=== PATIENT | female | born 1955 | race Caucasian/White ===

== ENCOUNTER 2024-02-04 14:48 | Emergency (ER) | payer MEDICARE, SELFPAY ==
[2024-02-04] VITALS (39 sets, daily range): BP systolic 117–170; BP diastolic 60–96; PULSE 55–72; RESP 15–47; TEMP 36.3; O2SAT 87–100; BMI 20.9
--- NOTE | 2024-02-04 15:02 | DI.RAD.S_ITS ---
PROCEDURE: XR WRIST RT MIN 3V INDICATIONS: fall on to Right wrist; hit gravel TECHNIQUE: 4 views of the wrist were acquired. COMPARISON: None. FINDINGS: Bones: Comminuted intra-articular distal radial fracture shows dorsal displacement and angulation Soft tissues: No suspicious soft tissue calcifications. IMPRESSION: Comminuted intra-articular distal radial fracture with dorsal displacement Minimally distracted ulnar styloid fracture Approved by: Demarco Hargrove M.D. on 02/04/2024 at 14:56
[2024-02-04] MEDS: ONDANSETRON 4 MG/2 ML INJ IV (15:17)
[2024-02-04] MEDS: HYDROMORPHONE 0.5 MG INJ IV (15:17)
--- NOTE | 2024-02-04 15:29 | PC.NURSE ---
Gave the patient pain medication and lisa, see MAR, patients sats dropped to 86%. Placed the patient on 2.5L NC in order to maintain sats above 91%. When placing the NC on patient they were reporting that they felt they were gonna be sick, this RN placed a cool rag on her head
--- NOTE | 2024-02-04 16:44 | ED.UPPEXIN ---
HPI - Extremity Injury (Upper) General Chief Complaint: Extremity Injury, Upper Stated Complaint: GLF, R WRIST INJURY, NO THINNERS Time Seen by Provider: 02/04/24 15:34 History of Present Illness HPI narrative: 68-year-old female fell from standing position on rocks at [facility] in [place] few hours ago, complains of swelling and pain to right wrist, no other injuries. No prior surgical interventions or procedures on this wrist. She has no pain to her left fingers, hand, mid proximal forearm, elbow, upper arm, shoulder, clavicle. She did not hit her head. She has no headache pain or neck pain. She denies upper mid lower back pain. She denies pain to her chest abdomen and pelvis. She had not hurt either leg. She did not injure her left upper extremity. Related Data Previous Rx's Medication Instructions Recorded oxycodone-acetaminophen 5 mg-325 1 tab PO Q6H PRN pain #20 tabs 02/04/24 mg tablet Allergies Allergy/AdvReac Type Severity Reaction Status Date / Time levofloxacin Allergy Verified 02/04/24 15:01 Patient History Social History Smoking Status: Former smoker Smoking Status: Former smoker alcohol intake frequency: other Substance Use Type: does not use Exam Narrative Exam Narrative: GENERAL: Well-developed patient, in mild distress. HEAD: Atraumatic. Normocephalic. EYES: Pupils equal round and reactive. Extraocular motions intact. No scleral icterus. No injection or drainage. ENT: Nose without bleeding, purulent drainage. Throat without erythema, tonsillar hypertrophy or exudate. Airway patent. NECK: Trachea midline. Non tender CARDIOVASCULAR: Regular rate and rhythm without murmurs, gallops, or rubs. RESPIRATORY: Clear to auscultation. Breath sounds equal bilaterally. No wheezes, rales, or rhonchi. GASTROINTESTINAL: Abdomen soft, non-tender, nondistended. EXTREMITIES: Dinner fork deformity closed distal radius fracture right wrist, radial pulse intact, good perfusion fingers, good sensation to light touch all fingers lateral and snuffbox in thumb. No tenderness to her right dorsal hand or right fingers, no tenderness or swelling to the right elbow upper arm shoulder clavicle. No edema or joint tenderness. BACK: Nontender without deformity or crepitance. No flank tenderness. NEURO: AOx3. Grossly nonfocal, limited right hand wrist motion due to orthopedic injury SKIN: No rash or erythema of visible areas Initial Vital Signs Initial Vital Signs: Vital Signs Pulse Rate 67 02/04/24 15:00 Pulse Oximetry 92 02/04/24 15:00 Oxygen Delivery Method Room Air 02/04/24 15:00 Procedures Orthopedic Fracture Reduction Fracture #1: Time Out Performed: Yes Side: right Fracture Reduction Location: radius (Distal radius Colles fracture with impaction and angulation in combination) Analgesia: procedural sedation Technique: direct manipulation and traction/counter-traction Post Reduction X-rays Demonstrate: anatomical reduction Post-reduction neuro exam: intact Post-reduction vascular exam: intact Splint Applied: Yes Patient Tolerated Procedure: Well Procedural Sedation Indication: fracture/dislocation reduction (Reduction of comminuted distal radius fracture with distal fracture fragment angulation and displacement) Presedation Evaluation: Prior general anesthesia surgery including cervical fusion surgery, good range of motion neck ASA Class: I Time of Last PO Intake: 09:00 IV Propofol dose (mg): 80 ED Sedation Level: Moderate (Concious) Patient Tolerated Procedure: Well Complications: none Interventions: Assist by BVM and Oxygen applied Additional Comments: Brief gentle bag assist BVM by RT, excellent results, tolerated well, returned to preprocedural baseline. Discharged home with family Course Orders Ordered: Discontinued Medications Hydromorphone HCl (Hydromorphone 0.5 Mg Inj) 0.5 mg IV NOW ONE Stop: 02/04/24 15:11 Last Admin: 02/04/24 15:17 Dose: 0.5 mg Documented By: GILDA Ondansetron HCl (Ondansetron 4 Mg/2 Ml Inj) 4 mg IV NOW ONE Stop: 02/04/24 15:11 Last Admin: 02/04/24 15:17 Dose: 4 mg Documented By: GILDA Oxycodone/Acetaminophen (Oxycodone/Acetaminophen 5/325 Tablet) 1 tab PO NOW ONE Stop: 02/04/24 17:44 Last Admin: 02/04/24 17:51 Dose: 1 tab Documented By: GILDA Oxycodone/Acetaminophen (Oxycodone/Apap 5/325 Prepack) 1 bottle MISC DIRECTED ONE Stop: 02/04/24 19:20 Last Admin: 02/04/24 20:07 Dose: 1 bottle Documented By: GILDA Propofol (Propofol 200 Mg/20 Ml Vial) 200 mg IV NOW ONE Stop: 02/04/24 16:20 Last Admin: 02/04/24 16:47 Dose: 200 mg Documented By: GILDA Vital Signs Vital signs: Vital Signs - 8 hr 02/04/24 15:00 02/04/24 15:01 02/04/24 15:04 Temperature 97.4 F L Pulse Rate 67 67 Respiratory Rate 18 Blood Pressure 130/70 120/68 Pulse Oximetry 92 92 Oxygen Delivery Method Room Air Room Air Oxygen Flow Rate 02/04/24 15:04 02/04/24 15:29 02/04/24 15:30 Temperature Pulse Rate 60 57 L Respiratory Rate 16 Blood Pressure 117/63 Pulse Oximetry 93 94 Oxygen Delivery Method Nasal Cannula Oxygen Flow Rate 2 02/04/24 15:30 02/04/24 16:00 02/04/24 16:00 Temperature Pulse Rate 57 L 61 Respiratory Rate 15 Blood Pressure 126/60 Pulse Oximetry 94 94 Oxygen Delivery Method Oxygen Flow Rate 02/04/24 16:30 02/04/24 16:30 Temperature Pulse Rate 59 L Respiratory Rate Blood Pressure 132/68 Pulse Oximetry 96 Oxygen Delivery Method Nasal Cannula Oxygen Flow Rate 2 MDM - Extremity Injury (Upper) Lab Data Labs: Point of Care Testing Test Results Not applicable Imaging Data Extremity x-ray #1: Radiologist's Impression: [address] [address] XRay Report Signed Patient: Delmi Salmeron MR#: [id number] : 1955 Acct:[id number] Age/Sex: 68 / F Date of Service: 02/04/24 Loc: ED Accession Number: [id number] Procedure: XR wrist RT min 3V Ordering Provider: Wan Pat MD PROCEDURE: XR WRIST RT MIN 3V INDICATIONS: fall on to Right wrist; hit gravel TECHNIQUE: 4 views of the wrist were acquired. COMPARISON: None. FINDINGS: Bones: Comminuted intra-articular distal radial fracture shows dorsal displacement and angulation Soft tissues: No suspicious soft tissue calcifications. IMPRESSION: Comminuted intra-articular distal radial fracture with dorsal displacement Minimally distracted ulnar styloid fracture Approved by: Demarco Hargrove M.D. on 02/04/2024 at 14:56 Extremity x-ray #2: Radiologist's Impression: [address] [address] XRay Report Signed Patient: Delmi Salmeron MR#: [id number] : 1955 Acct:[id number] Age/Sex: 68 / F Date of Service: 02/04/24 Loc: ED Accession Number: [id number] Procedure: XR wrist RT 2V Ordering Provider: Wan Pat MD PROCEDURE: XR WRIST RT 2V INDICATIONS: post reduction film TECHNIQUE: 2 views of the wrist were acquired. COMPARISON: [facility], , XR WRIST RT MIN 3V, 02/04/2024, 15:03. FINDINGS: Bones: Interval reduction and casting of comminuted distal right radial fracture in improved post reduction alignment. Redemonstration of minimally displaced distal ulnar styloid process fracture. Overlying cast material obscures fine underlying osseous details. Soft tissues: No suspicious soft tissue calcifications. IMPRESSION: Status post closed reduction and casting of known comminuted intra-articular fracture of the distal right radius. Minimally displaced ulnar styloid process fracture. Dictated by: Bennie Jones M.D. on 02/04/2024 at 18:13 Approved by: Bennie Jones M.D. on 02/04/2024 at 18:14 [facility] Narrative Medical decision making narrative: 68-year-old female with ground level fall, right distal radius displaced comminuted fracture, and right ulnar styloid fracture, isolated injury. History of prior general anesthesia, NPO since 9 this morning. Reduction conscious sedation, verbal consent from patient and family. See procedure notes. Reduction with traction/counter-traction and manual manipulation, clinically improved parents, placed in Webril cotton wrap, then sugar-tong ortho glass placement splint short-arm with molding. Cap refill less than 2 seconds fingers. Tolerated well. Disposition discussion, they are from [place] and were planning on train ride home tomorrow. Percocet home pack dispensed for pain control Monday overnight. Prescription for further Percocet sent to local pharmacy to fill tomorrow Monday during open hours. Contact information given for local orthopedic surgery, Dr. Flores if they should decide on staying for local orthopedic surgery, versus follow up in [facility] area. Copies of x-ray onto disc if they should pursue home state follow-up orthopedic care. Advised to follow up soon early this week, so that operative definitive intervention can be arranged either locally or in home state [place]. Placed in sling after splinting. Improved. Return precautions discussed. Home with family Discharge Plan Departure Patient Disposition: Home Clinical Impression: Distal radius fracture, right, Distal end of ulna fracture, closed, Colles' fracture Instructions: DI for Wrist Fracture Activity Restrictions/Additional Instructions: Fall onto park rocks, with right wrist pain and swelling, x-ray shows distal radius comminuted fracture with angulation, also a small ulnar tip fracture as well. Conscious sedation was performed to help with reduction straightening and repositioning of the bone fragments, for this unstable fracture that will require surgical fixation. Alignment in position was improved, with splinting, sling and sugar-tong splint. You were planning on going back home to your home [facility] but might be interested in having surgery locally. Contact information given for local surgery on-call, contact information for Dr. Flores, to call office tomorrow if you decide to try to have surgery locally. Otherwise would advise close follow up in your home state next few days, with arrangements for orthopedic surgery soon, for surgical fixation definitive care. Pain medication sent to local pharmacy free to feel. Wear sling and keep arm elevated. Follow up with Orthopedic surgery advised for surgical fixation. Call office tomorrow to see if local surgical arrangements can be made, if you decide to have care done locally. Return earlier to this/nearest emergency department for any change worsening symptoms or any concerns prior Prescriptions: New oxycodone-acetaminophen 5-325 mg tablet 1 tab PO Q6H PRN (Reason: pain) Qty: 20 0RF Referrals: Gricelda Flores MD [Physician] - Stand Alone Forms: Patient Portal/API, Work Release Note
[2024-02-04] MEDS: propofoL 200 MG/20 ML VIAL IV (16:47)
--- NOTE | 2024-02-04 17:12 | DI.RAD.S_ITS ---
PROCEDURE: XR WRIST RT 2V INDICATIONS: post reduction film TECHNIQUE: 2 views of the wrist were acquired. COMPARISON: [facility], CR, XR WRIST RT MIN 3V, 02/04/2024, 15:03. FINDINGS: Bones: Interval reduction and casting of comminuted distal right radial fracture in improved post reduction alignment. Redemonstration of minimally displaced distal ulnar styloid process fracture. Overlying cast material obscures fine underlying osseous details. Soft tissues: No suspicious soft tissue calcifications. IMPRESSION: Status post closed reduction and casting of known comminuted intra-articular fracture of the distal right radius. Minimally displaced ulnar styloid process fracture. Dictated by: Bennie Jones M.D. on 02/04/2024 at 18:13 Approved by: Bennie Jones M.D. on 02/04/2024 at 18:14
--- NOTE | 2024-02-04 17:34 | PC.NURSE ---
80mg of propofol was given by Dr. Pat, the patient required supplemental oxygen and BVM to maintain her sats above 91%, RT at bedside to assist during procedure. Patient tolerated the procedure well, patient is maintaining sats with 3L NC, A/Ox4, and respirations are even
[2024-02-04] MEDS: OXYCODONE/ACETAMINOPHEN 5/325 TABLET 1 TAB PO (17:51)
[2024-02-04] MEDS: OXYCODONE/APAP 5/325 PREPACK 1 BOTTLE MISC (20:07)
== END 2024-02-04 20:15 | disposition home or self-care (01) ==
PROVIDERS: Emergency Provider Emergency Medicine
DX: S52.511A Displaced fracture of right radial styloid process, initial encounter for closed fracture (principal); S52.611A Displaced fracture of right ulna styloid process, initial encounter for closed fracture; W18.30XA Fall on same level, unspecified, initial encounter
CPT/HCPCS: 25605; 36415; 73100; 73110; 96374; 96375; 99152; 99284; 99285; J1170; J2405; J2704

== ENCOUNTER 2024-02-06 09:51 | Day surgery (SDC) | payer MEDICARE, SELFPAY ==
[2024-02-06] VITALS (18 sets, daily range): BP systolic 131–165; BP diastolic 61–90; PULSE 69–91; RESP 8–20; TEMP 36.3–37.5; O2SAT 84–94; BMI 21.9
--- NOTE | 2024-02-06 11:23 | PM.PREOP ---
Pre-operative Note Interval Note History & Physical reviewed/Exam performed by Physician: Yes Changes to H&P: No
[2024-02-06] MEDS: LACTATED RINGERS 1,000 ML 42 ML IV (11:31)
--- NOTE | 2024-02-06 11:38 | PM.OP.1 ---
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 [place] the acute onset of right hand and wrist pain and deformity. She was seen in the emergency room. He underwent a closed reduction and orthopedic consultation was recommended. She is she was brought the operating room for open reduction procedure options risks benefits and patient is were discussed in detail risks benefits and complications. Possibility of persistent numbness intra-articular fracture and concerns regarding osteoporosis bone healing and persistent stiffness and numbness discussed. Surgeon: Gricelda Flores Click Yes if Unassisted: Yes Anesthesia Type: General Operative Notes Findings: Comminuted right distal radius fracture, soft bone, acceptable alignment and stable fixation Closure Type: primary Specimen(s): none sent Prosthetic devices, grafts, tissues, transplants, or devices: Flores and nephew EVOS distal radius plate WITH MULTIPLE LOCKING SCREWS Estimated Blood Loss (mL): 20 Blood products transfused: none Tourniquet time (min): 89 Procedure in detail: Patient was brought to the operating room. She underwent the induction of general anesthesia. She was given IV antibiotics. Time-out was performed. Patient's right upper extremity prepped draped standard sterile fashion. High arm tourniquet was applied and the arm was exsanguinated and the tourniquet was elevated to 250 mmHg. A volar incision was made over the flexor carpi radialis dissection was carried out through skin and subcutaneous tissues. Tendon was gently retracted and the radial artery in vein were protected. Inferior sheath of the FCR tendon. The muscle was gently elevated off of the distal radius. The fracture was then meticulously reduced. A plate was carefully applied to the distal radius and it was pinned to the distal fragment. An adequate reduction was achieved. The bone was pretty soft. I used a C-arm to confirm the plate position and screw position as well as fracture reduction. Fracture was meticulously reduced and then the plate was fixed to the shaft and to the distal fragment. Acceptable reduction was achieved. I used multiple C-arm x-rays to make sure that the fracture was adequately aligned and that the screws were appropriately positioned. The wound was meticulously irrigated with normal saline. Marcaine was injected. The muscle was gently reapproximated over the plate and the subcutaneous tissues were closed with interrupted Vicryl and nylon. The wound was dressed sterilely. Patient tolerated the procedure well she was transferred recovery room in satisfactory condition. Complications none. Complications: none Post-operative Condition: stable Disposition: Acute Care Plan for aftercare: Leave splint on for about 10 days postoperatively. Get x-rays at postop follow up in 10-14 days and have sutures removed. Okay to do a removable [id number] brace with very gentle range of motion and no lifting.
[2024-02-06] MEDS: CEFAZOLIN 2 GM/100 ML PREMIX 100 ML IV (11:50)
--- NOTE | 2024-02-06 12:05 | SUR.OPER ---
Supine on padded OR bed, head on pillow, arms secured on padded arm boards at <90 degrees abduction, legs uncrossed, safety belt at thigh, tape over blanket over lower legs.
[2024-02-06] MEDS: BUPIVACAINE 0.5% MDV 30 ML INJ (12:11)
[2024-02-06] MEDS: ALBUTEROL/IPRATROPIUM 3 ML AMPUL INH (13:55)
[2024-02-06] MEDS: KETOROLAC 30 MG/ML VIAL 15 MG IV (14:23)
[2024-02-06] MEDS: ACETAMINOPHEN 325 MG TABLET 650 MG PO (14:25)
--- NOTE | 2024-02-06 17:05 | SUR.PHASEII ---
PT DISCHARGED FROM PHASE II , ANESTHESIA CLEARED PT FOR DISCHARGE WITH INSTRUCTION TO USE TYLENOL AND IBUPROFEN TONIGHT FOR PAIN ,MANAGEMENT, DR COOPER CLEARED PT FOR DISCHARGE WITH CONTINUED USE OF INCENTIVE SPIROMETER, PT AMBULATED WITHOUT CONCERN , VOIDED AND WAS ABLE TO CARE FOR SELF IN BATHROOM. PT ALERT AND ORIENTED, SATURATIONS REMAIN ABOVE 90%, BREATHING WITHOUT DISTRESS. ON ROOM AIR. PT ENCOURAGED TO FOLLOW UP WITH ALL MEDICAL CONCERNS WHEN HOME. PATIENT AND PTS SON AND SPOUSE VERBALIZE UNDERSTANDING OF ALL DISCHARGE INSTRUCTION, WITH ICE ELEVATION AND PAIN MED MANAGEMENT.
== END 2024-02-06 16:50 | disposition home or self-care (01) ==
PROVIDERS: Referring Provider Orthopaedic Surgery; Visit Provider Orthopaedic Surgery
PROC: (CPT 25609; principal; 2024-02-06 12:15)
DX: S52.571A Other intraarticular fracture of lower end of right radius, initial encounter for closed fracture (principal); W18.30XA Fall on same level, unspecified, initial encounter; Y92.89 Other specified places as the place of occurrence of the external cause
CPT/HCPCS: 25609; C1713; J0330; J0690; J1170; J1885; J2405; J2704; J3010